=== PATIENT | male | born 1970 | race Caucasian/White ===

== ENCOUNTER 2017-04-15 15:37 | Inpatient (IN) | payer OTHER ==
[~2017-04-15] VITALS: Ht 185.4 cm; Wt 86.6 kg
--- NOTE | ~2017-04-15 | HC ---
[facility] [place] [address] CONSULTATION Name: KIET HECTOR Room #: 440-P ADM IN M.R.#: [id number] Admission: 04/15/17 Attend Phys: Nando Ortez MD Discharge: Date of : 70 Report #: [id number] THIS REPORT FOR: //name// CC: Nando Stout DATE OF SERVICE: 04/15/2017 DATE OF SERVICE: 04/15/2017. CHIEF COMPLAINT: Abdominal pain. HISTORY OF PRESENT ILLNESS: The patient is a very pleasant 47-year-old male patient with history of lower abdominal pain that has worsened over the past 24 hours. He reports malaise and myalgias over the past several days. He reports that 1 week ago, his young son who was 8 years old, had suffered from an episode of distribution a class lineman, which involved diarrhea and nausea and vomiting. He denies any aurelia fevers, but he does report feeling cold at times, does report some crampy abdominal pain as well as reports passing flatus without diarrhea. Denies nausea, vomiting or belching. PAST MEDICAL HISTORY: Positive for hypertension, gastroesophageal reflux disease, depression, previous kidney stones. PAST SURGICAL HISTORY: Positive for EGD, lumbar laminectomy with diskectomy, recent rotator cuff repair. MEDICATIONS: Include duloxetine, metoprolol, ranitidine. ALLERGIES: Include PENICILLIN. SOCIAL HISTORY: Positive for tobacco use for the past 30 years. Negative for illicit drug use. Positive for social ETOH use. PHYSICAL EXAMINATION: VITAL SIGNS: The patient is afebrile at 37.1, pulse of 84-95, respirations 16-18, blood pressure 111/76, and saturation 98% on room air. GENERAL: The patient is awake, alert and oriented. He is in no acute distress. HEENT: Head is atraumatic and normocephalic. Pupils are equally round and reactive. No icterus is appreciated. NECK: Supple, without jugular venous distention or lymphadenopathy. HEART: Regular, without murmur. LUNGS: Clear to auscultation. ABDOMEN: Soft and uncomfortable in the right lower quadrant. No rebound or guarding is appreciated. No abdominal surgical scars. EXTREMITIES: Without clubbing, cyanosis or edema. SKIN: No obvious rashes or lesions. LABORATORY DATA: Reviewed. White blood cell count of 9.3, hemoglobin 13.9, platelets of 226. Lactate of 1.1. BUN of 9, creatinine 0.8, sodium 139, [facility] [address] [place] [address] CONSULTATION Name: KIET HECTOR Room #: 440-P ADM IN [facility]#: [id number] Admission: 04/15/17 Attend Phys: Nando Ortez MD Discharge: Date of : 70 Report #: [id number] potassium 3.8, chloride 102, carbon dioxide 27, total bilirubin 0.4, AST of 20, ALT of 52, alkaline phosphatase of 91, lipase of 167. DIAGNOSTIC DATA: Radiographic imaging reviewed. CT scan of the abdomen and pelvis with contrast is reviewed in detail. This shows a small collection of fluid posterior to the lower cecum near the appendix. The appendix itself is mildly prominent at 1 cm, but no appendicolith, no stranding surrounding the appendix. No obvious hyperattenuation, no specific inflammatory process involving the cecum or appendix, 3 cm intermediate right adrenal mass incidental, liver with mild steatosis, spleen unremarkable. Gallbladder unremarkable. There was mild physiologic dilatation of the proximal small bowel up to 3 cm. Scattered fluid levels. No local adenopathy. Mild formed stool over the mid and distal colon. Air - fluid level was in the transverse colon which may be consistent with diarrhea. IMPRESSION: 47-year-old male patient with lower abdominal pain and myalgias, which has worsened over the past 24 hours, unclear whether this may represent enteritis versus early appendicitis. The patient does not show leukocytosis, and a CT scan does not show any direct inflammation of the appendix itself, although there is a small fluid collection posterior to the cecum. Given the recent exposure to an apparent viral infection, would favor viral enteritis at this stage. Agree with plan for admission for observation, and will follow with serial abdominal examinations. I agree with plan for coverage with Cipro and Flagyl IV as the patient is allergic to PENICILLIN. No immediate plan for general surgical intervention at this time. Consultation appreciated. Will continue to follow closely and make further recommendations based upon clinical status, as well as radiographic and laboratory findings. <ELECTRONICALLY SIGNED> By: Vernon Paredes MD 04/16/17 1011 1831 0450 Vernon Paredes MD /nt
--- NOTE | ~2017-04-15 | H ---
[facility] [place] [address] HISTORY AND PHYSICAL Name: KIET HECTOR Room #: 440-P ADM IN M.R.#: [id number] Admission: 04/15/17 Attend Phys: Nando Ortez MD Discharge: Date of : 70 Report #: [id number] THIS REPORT FOR: //name// CC: Nando Stotu DATE OF SERVICE: 04/15/2017 REASON FOR ADMISSION: Right lower quadrant abdominal pain. 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 He has been experiencing significant abdominal discomfort in his right lower quadrant for approximately the last 24 hours. He is well versed in the medical field and was concerned this may be appendicitis and hence he presented to the Emergency Room. He reports that he has had some intermittent discomfort ongoing for approximately the last week. He has not had any fevers, diarrhea, severe nausea, vomiting, headaches, skin rashes, fevers, chills or other problems. He denies chest pain. He is being admitted at the present time with concerns for possible developing appendicitis. PAST MEDICAL HISTORY: Includes, 1. Hypertension. 2. Gastroesophageal reflux disease. 3. Depression. PAST SURGICAL HISTORY: Includes a lumbar laminectomy and diskectomy. SOCIAL HISTORY: Includes tobacco abuse and smoking. 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 ALLERGIES: REPORTED TO PENICILLIN. FAMILY HISTORY: Denies any significant family history. REVIEW OF SYSTEMS: Twelve-point review of systems performed, negative except as mentioned in the history of present illness. PHYSICAL EXAMINATION: VITAL SIGNS: Today, patient's vitals afebrile, pulse of 89, respiratory rate 16, O2 sat 99% on room air, blood pressure is 111/76. GENERAL: Awake, alert, no acute distress. HEENT: Unremarkable. NECK: No JVD or thyromegaly. CARDIOVASCULAR: S1, S2 present, regular. RESPIRATORY: Air entry present bilaterally. [facility] [address] [place] [address] HISTORY AND PHYSICAL Name: KIET HECTOR Room #: 440- ADM IN M.R.#: [id number] Admission: 04/15/17 Attend Phys: Nando Ortez MD Discharge: Date of : 70 Report #: [id number] ABDOMEN: Soft, tender to palpation right lower quadrant with some amount of guarding. No obvious rebound or rigidity. EXTREMITIES: Without edema. NEUROLOGIC: Awake, alert and obvious focal findings. SKIN: Dry. LABORATORY INVESTIGATIONS: CBC unremarkable without leukocytosis or obvious bandemia. Chemistry unremarkable. Lactic acid within normal range. Urinalysis pending. Imaging with an abdominal pelvis CT appears to show a small amount of fluid posterior to the cecum. No definite inflammation around the appendix. Appendix measures 1 cm in diameter. ASSESSMENT AND PLAN: This is a 47-year-old gentleman presenting with right lower quadrant abdominal pain. 1. Right lower quadrant abdominal pain. This likely represents enterocolitis/gastroenteritis versus early appendicitis. At the present time, the patient does not have severe SIRS criteria and appears clinically stable. He does not appear to have any CT or imaging findings concerning for obviously inflamed appendix or impending rupture. He has been started on IV antibiotics in the Emergency Room, which will be continued. We will obtain surgical consultation to see if he may require surgical removal of his appendix as well versus assess response to antibiotic therapy. 2. DVT prophylaxis. We will only use SCDs with possible need for surgery. 3. Hypertension. Resume his beta cecilia. <ELECTRONICALLY SIGNED> By: Nando Ortez MD 04/16/17 1120 1811 2043 Nando Ortez MD /nt
[~2017-04-15 15:37] MED LIST: ALEVE220 MG PO; CYMBALTA60 MG PO; LOPRESSOR50 PO; NORCO 5-325 TA1 EACH PO; ZANTAC 150MG T150 MG PO
[2017-04-15 15:43] VITALS: BP 115/77
[2017-04-15 16:03] LABS: BASOPHILS 0.5 % (0.0-2.0); HEMATOCRIT 40.5 % (42.0-52.0); HEMOGLOBIN 13.9 gm/dL (14.0-18.0); LYMPHOCYTES 17.6 % (24.0-44.0); MCH 29.5 pg (26.0-34.0); MCHC 34.2 g/dL (28.0-37.0); MCV 86.2 fL (80.0-100.0); MONOCYTES 5.1 % (1.0-8.0); PLATELET COUNT 226 thou/uL (150-400); POLYS 74.8 % (36.0-66.0); WBC 9.3 thou/uL (4.0-11.0)
[2017-04-15 16:04] LABS: MANUAL DIFF NO
[2017-04-15 16:13] LABS: ANION GAP 10 mmol/L (7-16); BUN 9 mg/dL (7-18); CALCIUM 9.1 mg/dL (8.5-10.1); CHLORIDE 102 mmol/L (98-107); CO2 27 mmol/L (21-32); CREATININE 0.8 mg/dL (0.7-1.3); GLUCOSE 100 mg/dL (74-106); POTASSIUM 3.8 mmol/L (3.5-5.1); SODIUM 139 mmol/L (136-145)
[2017-04-15 16:17] LABS: ALKALINE PHOSPHATASE 91 U/L (46-116); DIRECT BILIRUBIN < 0.1 mg/dL (<0.1-0.3); SGOT 20 U/L (15-37); SGPT 52 U/L (30-65); TOTAL BILIRUBIN 0.4 mg/dL (<0.1-1.0); TOTAL PROTEIN 6.9 g/dL (6.4-8.2)
[2017-04-15 17:53] VITALS: BP 111/76
[2017-04-15 19:43] VITALS: BP 108/78
[2017-04-16 04:00] VITALS: BP 109/64
[2017-04-16 06:31] LABS: HEMATOCRIT 38.4 % (42.0-52.0); HEMOGLOBIN 12.9 gm/dL (14.0-18.0); MCH 28.8 pg (26.0-34.0); MCHC 33.6 g/dL (28.0-37.0); MCV 85.6 fL (80.0-100.0); RBC 4.49 mil/uL (4.50-6.00); RDW 13.1 % (10.5-14.5); WBC 5.3 thou/uL (4.0-11.0)
[2017-04-16 06:40] LABS: CALCIUM 9.1 mg/dL (8.5-10.1); CREATININE 0.8 mg/dL (0.7-1.3)
[2017-04-16 08:00] VITALS: BP 110/72
[2017-04-16] MEDS ORDERED: CIPRO500 MG PO (15:27)
[2017-04-16] MEDS ORDERED: FLAGYL500 MG PO (15:27)
[2017-04-16 15:32] VITALS: BP 109/64
== END 2017-04-16 15:54 | disposition home or self-care (01) | DRG 392 ==
LOC: ER 15:37 → EROBS 17:37 → 4S 17:37
PROVIDERS: Emergency Medicine; Hospitalist
DX: K52.9 Noninfective gastroenteritis and colitis, unspecified (principal); I10 Essential (primary) hypertension; M79.1 Myalgia; K21.9 Gastro-esophageal reflux disease without esophagitis; K37 Unspecified appendicitis; F32.9 Major depressive disorder, single episode, unspecified; Z87.891 Personal history of nicotine dependence; Z87.442 Personal history of urinary calculi; Z88.0 Allergy status to penicillin
CPT/HCPCS: 10102